=== PATIENT | female | born 1960 | race African-American/Black ===

== ENCOUNTER 2018-10-30 14:55 | Inpatient (IN) | payer MEDICARE, MEDICAID ==
[~2018-10-30] VITALS: Ht 165.1 cm; Wt 113.4 kg
[~2018-10-30 14:55] MED LIST: DULO60CA44 PO; GLIP10TA10 PO; HYDR-4005 PO; LOSA50TA20 PO; METF-416 PO; METO-539 PO; OMEP20TA2 PO; S350 PO; SIMV20TA6 PO; ZET10 PO
[2018-10-30] MEDS ORDERED: MORPHINE SULFATE 4 MG/ML CPJ (NOT FOR IM USE) IV STA (15:57)
[2018-10-30] MEDS ORDERED: ONDANSETRON HCL 4MG/2ML INJ IV STA (15:57)
[2018-10-30] MEDS ORDERED: FAMOTIDINE 20MG/2ML VIAL IV STA (15:57)
[2018-10-30 16:59] LABS: BASOPHILS % 0.3 % (0.0-2.0); EOSINOPHILS % 0.7 % (0.0-5.0); HEMATOCRIT. 38.5 % (36.0-48.0); HEMOGLOBIN. 12.7 g/dL (12.0-16.0); LYMPHOCYTES % 17.4 % (20.0-50.0); MEAN CORPUSCULAR HEMOGLOBIN 29.6 pg (28.0-32.0); MEAN CORPUSCULAR VOLUME 89.9 fL (81.0-99.0); MEAN PLATELET VOLUME 8.3 fl (7.4-10.4); MONOCYTES % 6.3 % (2.0-8.0); NEUTROPHILS % 75.3 % (40.0-76.0); PLATELET 289 x1000/uL (130-400); RED BLOOD CELL COUNT 4.28 mill/uL (4.2-5.4); RED CELL DISTRIBUTION WIDTH 14.2 % (11.6-14.6)
[2018-10-30 17:10] LABS: CHLORIDE 107 mEq/L (98-107)
[2018-10-30 17:13] LABS: PROTHROMBIN TIME 9.7 sec (9.1-11.1)
[2018-10-30] MEDS ORDERED: MORPHINE SULFATE 4 MG/ML CPJ (NOT FOR IM USE) IV ONE (18:15)
[2018-10-30 19:29] LABS: CLARITY URINE CLEAR (CLEAR); COLOR URINE YELLOW (YELLOW); KETONES URINE NEGATIVE (NEGATIVE); LEUKOCYTE ESTERASE URINE NEGATIVE (NEGATIVE); NITRITE URINE NEGATIVE (NEGATIVE); OCCULT BLOOD URINE NEGATIVE (NEGATIVE); PROTEIN URINE NEGATIVE (NEGATIVE); SPECIFIC GRAVITY URINE 1.012 (1.005-1.030); UROBILINOGEN URINE 0.2 E.U./dL (0.2-1.0)
[2018-10-30] MEDS ORDERED: DEXT 5%/0.45% NACL 1000ML 1,000 ML IV SCH (22:00)
[2018-10-30] MEDS ORDERED: DEXTROSE 50% WATER 50ML SYRINGE IV PRN (22:00)
[2018-10-30] MEDS: BLOOD SUGAR DIAGNOSTIC STRIP TEST SCH (22:26)
[2018-10-30] MEDS: INSULIN LISPRO (MEDIUM DOSE) 100 UNITS/ML SUBCUT SCH (22:30)
[2018-10-30] MEDS: HYDROMORPHONE HCL/PF 2MG/ML CPJ IV PRN (23:00)
[2018-10-30 23:15] VITALS: BP 125/86
[2018-10-31] MEDS: ONDANSETRON HCL 4MG/2ML INJ IV PRN ×2 (00:17→20:53)
[2018-10-31] MEDS: HYDROMORPHONE HCL/PF 2MG/ML CPJ IV PRN ×5 (03:35→20:53)
[2018-10-31 04:00] VITALS: BP 105/67
[2018-10-31] MEDS: INSULIN LISPRO (MEDIUM DOSE) 100 UNITS/ML SUBCUT SCH ×4 (06:36→20:52)
[2018-10-31] MEDS: BLOOD SUGAR DIAGNOSTIC STRIP TEST SCH ×4 (06:52→20:54)
[2018-10-31 07:26] LABS: BASOPHILS % 0.3 % (0.0-2.0); EOSINOPHILS % 0.4 % (0.0-5.0); HEMOGLOBIN. 11.9 g/dL (12.0-16.0); LYMPHOCYTES % 20.2 % (20.0-50.0); MEAN CORPUSCULAR HEMOGLOBIN 29.8 pg (28.0-32.0); MEAN CORPUSCULAR VOLUME 89.9 fL (81.0-99.0); MEAN PLATELET VOLUME 8.4 fl (7.4-10.4); MONOCYTES % 8.1 % (2.0-8.0); PLATELET 285 x1000/uL (130-400); RED CELL DISTRIBUTION WIDTH 14.3 % (11.6-14.6)
[2018-10-31 07:29] LABS: CHLORIDE 106 mEq/L (98-107)
[2018-10-31 08:00] VITALS: BP 125/90
[2018-10-31] MEDS: PANTOPRAZOLE SODIUM 40 MG/VIAL IV SCH ×2 (08:02)
[2018-10-31 11:57] VITALS: BP 120/74
[2018-10-31] MEDS: ACETAMINOPHEN 325MG TABLET PO PRN (14:57)
[2018-10-31 16:00] VITALS: BP 121/64
[2018-10-31 20:00] VITALS: BP 130/82
[2018-10-31] MEDS: ATORVASTATIN CALCIUM 10MG TABLET PO SCH (20:53)
[2018-10-31] MEDS: ZOLPIDEM TARTRATE 5MG TABLET PO PRN (22:37)
[2018-11-01] VITALS: BP 120/85
[2018-11-01] MEDS: HYDROMORPHONE HCL/PF 2MG/ML CPJ IV PRN ×5 (01:51→23:38)
[2018-11-01 04:00] VITALS: BP 125/86
[2018-11-01] MEDS: INSULIN LISPRO (MEDIUM DOSE) 100 UNITS/ML SUBCUT SCH ×5 (06:11→21:34)
[2018-11-01] MEDS: BLOOD SUGAR DIAGNOSTIC STRIP TEST SCH ×4 (06:11→20:55)
[2018-11-01 07:43] LABS: BASOPHILS % 0.4 % (0.0-2.0); EOSINOPHILS % 1.2 % (0.0-5.0); HEMOGLOBIN. 11.5 g/dL (12.0-16.0); LYMPHOCYTES % 15.4 % (20.0-50.0); MEAN CORPUSCULAR HEMOGLOBIN 29.4 pg (28.0-32.0); MEAN CORPUSCULAR VOLUME 89.5 fL (81.0-99.0); MEAN PLATELET VOLUME 8.4 fl (7.4-10.4); MONOCYTES % 6.6 % (2.0-8.0); NEUTROPHILS % 76.4 % (40.0-76.0); PLATELET 266 x1000/uL (130-400); RED BLOOD CELL COUNT 3.91 mill/uL (4.2-5.4); RED CELL DISTRIBUTION WIDTH 13.7 % (11.6-14.6)
[2018-11-01 08:00] VITALS: BP 137/71
[2018-11-01 08:11] LABS: CHLORIDE 105 mEq/L (98-107)
[2018-11-01] MEDS: PANTOPRAZOLE SODIUM 40 MG/VIAL IV SCH (09:45)
[2018-11-01 12:00] VITALS: BP 144/74
[2018-11-01 16:00] VITALS: BP 152/76
[2018-11-01 20:00] VITALS: BP 142/75
[2018-11-01] MEDS: ATORVASTATIN CALCIUM 10MG TABLET PO SCH (21:30)
[2018-11-02] VITALS: BP 139/72
[2018-11-02] MEDS: ZOLPIDEM TARTRATE 5MG TABLET PO PRN (00:20)
[2018-11-02 04:00] VITALS: BP 149/68
[2018-11-02] MEDS: HYDROMORPHONE HCL/PF 2MG/ML CPJ IV PRN ×3 (04:02→13:30)
[2018-11-02] MEDS: BLOOD SUGAR DIAGNOSTIC STRIP TEST SCH ×2 (06:05→12:29)
[2018-11-02] MEDS: INSULIN LISPRO (MEDIUM DOSE) 100 UNITS/ML SUBCUT SCH ×2 (06:56→12:53)
[2018-11-02] MEDS: PANTOPRAZOLE SODIUM 40 MG/VIAL IV SCH (09:01)
[2018-11-02] MEDS: ACETAMINOPHEN 325MG TABLET PO PRN (10:03)
[2018-11-02 11:47] VITALS: BP 119/71
[2018-11-02 12:00] VITALS: BP 122/79
[2018-11-02 13:30] VITALS: BP 122/79
== END 2018-11-02 14:25 | disposition home or self-care (01) | DRG 439 ==
LOC: ER 15:06 → 8WST 18:09 → EDBEDREQ 18:21 → ENRESERV 20:54
PROVIDERS: ADMIT Hospitalist; ATTEND Hospitalist
DX: K85.90 Acute pancreatitis without necrosis or infection, unspecified (principal); K86.3 Pseudocyst of pancreas; E11.9 Type 2 diabetes mellitus without complications; I10 Essential (primary) hypertension; M54.30 Sciatica, unspecified side; Z90.49 Acquired absence of other specified parts of digestive tract; Z88.8 Allergy status to other drugs, medicaments and biological substances; Z79.899 Other long term (current) drug therapy
CPT/HCPCS: 36415; 74176; 80061; 82962; 96374; 96375; 96376; 99285; C9113; J1170; J1815; J2270; J2405; J3490